=== PATIENT | male | born 2000 | race Caucasian/White ===

== ENCOUNTER 2023-10-31 21:23 | Emergency (ER) | payer OTHER ==
[~2023-10-31] VITALS: Ht 180.3 cm; Wt 127.0 kg
[2023-10-31 21:45] VITALS: BP 146/93; PULSE 104; RESP 18; TEMP 97.6; O2SAT 98
[2023-10-31 22:35] LABS: FLU A ANTIGEN negative (NEGATIVE); FLU B ANTIGEN NEGATIVE (NEGATIVE)
[2023-10-31 23:47] VITALS: BP 140/93; PULSE 100; RESP 18; TEMP 97.6; O2SAT 98
[2023-11-01] MEDS ORDERED: AMOX-1230 PO (00:14)
== END 2023-11-01 00:19 | disposition home or self-care (01) ==
LOC: MED 21:23
DX: J02.9 Acute pharyngitis, unspecified (principal); Z20.822 Contact with and (suspected) exposure to COVID-19; Z79.899 Other long term (current) drug therapy
CPT/HCPCS: 99283